=== PATIENT | male | born 1975 | race Caucasian/White ===

== ENCOUNTER 2018-09-28 19:35 | Emergency (ER) | payer BC ==
[2018-09-28] MEDS ORDERED: Bacitracin Oint 1 GM U/D Packet TOP ONE (20:12)
--- NOTE | 2018-09-28 20:18 | EDM.PDOC ---
ED HPI GENERAL MEDICAL PROBLEM - General Chief Complaint: Skin Complaint Stated Complaint: FISHHOOK LEFT FIRST FINGER Time Seen by Provider: 09/28/18 20:15 Source of Information: Reports: Patient History Limitations: Reports: No Limitations - History of Present Illness INITIAL COMMENTS - FREE TEXT/NARRATIVE: Patient presents to the ED with fishhook stuck in left index finger. DT up to date, denies any other injuries. Onset: Today, Sudden - Related Data Allergies Allergy/AdvReac Type Severity Reaction Status Date / Time No Known Allergies Allergy Verified 09/28/18 20:02 Home Meds: Home Meds NK [No Known Home Meds] 09/28/18 [History] Past Medical History - Past Health History Medical/Surgical History: Denies Medical/Surgical History Social & Family History - Tobacco Use Smoking Status *Q: Never Smoker - Caffeine Use Caffeine Use: Reports: Coffee, Soda - Recreational Drug Use Recreational Drug Use: No ED ROS GENERAL - Review of Systems Review Of Systems: ROS reveals no pertinent complaints other than HPI. ED EXAM, SKIN/RASH Exam: See Below Exam Limited By: No Limitations General Appearance: Alert, WD/WN, No Apparent Distress Throat/Mouth: Normal Inspection, Normal Oropharynx Head: Atraumatic, Normocephalic Neck: Normal Inspection Respiratory/Chest: No Respiratory Distress Cardiovascular: Regular Rate, Rhythm Extremities: Normal Inspection Neurological: Alert, Oriented, CN II-XII Intact Psychiatric: Normal Affect, Normal Mood Skin: Warm, Dry, Other (fish hook into dorsum of left index finger, full ROM, cap refill intact) Course - Vital Signs Last Recorded V/S: Last Vital Signs Temp 35.4 C 09/28/18 20:02 Pulse 87 09/28/18 20:02 Resp 18 09/28/18 20:02 BP 140/93 H 09/28/18 20:02 Pulse Ox 98 09/28/18 20:02 Patient anesthetized with 2 ml of 1% lidocaine, Luer cut from hook, hook pushed through finger, washed wound well, bacitracin and dressing applied. Wound care discussed as well as reasons to return to the ED. Patient agreeable and discharged in stable condition. - Orders/Labs/Meds Meds: Medications Discontinued Medications Generic Name Dose Route Start Last Admin Trade Name Freq PRN Reason Stop Dose Admin Bacitracin 1 dose 09/28/18 20:12 09/28/18 20:17 Bacitracin Oint 1 Gm TOP 09/28/18 20:13 1 dose ONETIME ONE Administration Lidocaine HCl 5 ml 09/28/18 19:38 09/28/18 20:17 Xylocaine-Mpf 1% INJECT 09/28/18 19:39 5 ml ONETIME ONE Administration Departure - Departure Time of Disposition: 20:30 Disposition: Home, Self-Care 01 Condition: Good Clinical Impression: Fish hook injury of finger Qualifiers: Encounter type: initial encounter Laterality: left Qualified Code(s): S69.92XA - Unspecified injury of left wrist, hand and finger(s), initial encounter - Discharge Information Instructions: Hand or Foot Foreign Body, Adult Referrals: Armando De La Torre MD [Primary Care Provider] - Forms: ED Department Discharge Additional Instructions: Keep clean and dry Bacitracin twice daily for 3 days
== END 2018-09-28 20:24 | disposition home or self-care (01) ==
LOC: JP.ED 19:35
DX: S60.451A Superficial foreign body of left index finger, initial encounter (principal); W45.8XXA Other foreign body or object entering through skin, initial encounter
CPT/HCPCS: 99282; J2001